=== PATIENT | female | born 1975 | race Caucasian/White ===

== ENCOUNTER → 2021-06-29 | Day surgery (SDC) | payer BC ==
[~2021-06-29] MED LIST: CALCIUM CITRAT250 MG PO; CIPRO500 MG PO; IOPAMIDOL 300MG/ML 50ML INFUS..BTL IV ONE; MEPERIDINE HCL INJ 25 MG/ML VIAL ONE
[2021-06-29 16:00] VITALS: BP 143/96
== END | disposition home or self-care (01) ==
LOC: OR 11:26
PROVIDERS: ATTEND Urology
DX: N20.0 Calculus of kidney (principal); N13.30 Unspecified hydronephrosis; G80.9 Cerebral palsy, unspecified; Z87.440 Personal history of urinary (tract) infections
CPT/HCPCS: 52356; 74420; 81025; 88300; C1758; C1766; J2175; Q9967; J0690